=== PATIENT | female | born 1990 | race Caucasian/White ===

== ENCOUNTER 2024-09-09 09:58 | Outpatient (AMB) | payer MEDICAID, SELFPAY ==
[2024-09-09 10:08] VITALS: BP 140/82; PULSE 88; O2SAT 98; BMI 40.1
--- NOTE | 2024-09-09 10:08 | A.OFFVIS_ITS ---
Vital Signs 09/09/24 10:08 Height 5 ft Weight 205 lb 7.533 oz BMI 40.1 BP 140/82 H Blood Pressure Location Lt brachial Position Sitting Pulse 88 Pulse Source Pulse Oximeter Pulse Oximetry (%) 98 Oxygen Delivery Method Room Air Intake Visit Reasons: positive ISIDRO/CM Intake Note: Patient presents as a new patient, externally referred by PCP for positive ISIDRO. Accompanied by: Spouse Allergies escitalopram [From Lexapro] Adverse Reaction (Intermediate, Verified 09/09/24 10:10) body twitching Medication List - Last Reconciled 09/09/24 by Monica Frederick MD acetaminophen (Tylenol) 650 mg PO Q6H PRN albuterol sulfate 90 mcg/actuation 1 inh inhalation QID ibuprofen 600 mg PO TID HPI Comments Details: Patient is a 34-year-old female who presents for evaluation of positive ISIDRO. Patient states that in 01/29/2024 she had sudden onset of left-sided facial droop. 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 At that time she was given steroids with improvement in her symptoms. Subsequent to this she started to notice neuropathic type pain going down her left arm. Over the past 2 months she also started to notice stiffness in her hands that would last all day. Specifically in her 2nd MCP and 1st CMC. Denies rashes, photosensitivity, alopecia, oral/nasal ulcers, sicca symptoms, lymphadenopathy, chest pain/shortness of breath, foamy urine, lower extremity edema, muscle weakness, Raynaud's Also denies history of seizure, CVA, psychosis, history of kidney problems, history of cytopenias, history of VTE Family History - Daughter with RAFAL, aunt with lupus, grandmother with thyroid condition unsure if it is autoimmune related , miscarriages at 8 weeks, 18 weeks. Pre eclampsia with 3rd child [facility] Medical History (Updated 09/09/24 @ 10:40 by Monica Frederick MD) Antiphospholipid syndrome Encounter for prophylactic removal of fallopian tube PCOS (polycystic ovarian syndrome) Review of Systems Const Details: Review of Systems Constitutional: Denies fever, chills, weight loss ENT: Denies vision changes, eye pain or eye redness, dental caries, dry mouth GI: Denies nausea, vomiting, diarrhea, abdominal pain, change in BM Pulm: Denies SOB, GUAN, hemoptysis, wheezing Cards: Denies chest pain, palpitations Skin: Denies Raynaud's, rash, nail changes, photosensitivity, [employer]: Denies headaches, weakness, paresthesias, recurrent falls MSK: as per HPI All other systems reviewed and are unremarkable except noted above Physical Exam Vital Signs: Last Vital Signs Pulse 88 09/09/24 10:08 BP 140/82 H 09/09/24 10:08 Pulse Ox 98 09/09/24 10:08 Oxygen Delivery Method Room Air 09/09/24 10:08 BMI result Body Mass Index 40.1 Physical Examination Patient well appearing and in no apparent painful distress Able to rise from chair without support. ?Gait normal. Constitutional Mucous membranes pink and moist patient alert and cooperative HEENT Conjunctiva and sclera clear. ?Pupils equal round and reactive to light. ?No lymphadenopathy. ?Normal dentition. Respiratory System Normal respiratory effort and able to speak in complete sentences. ?Clear to auscultation bilaterally. ?No crackles, rales, rhonchi, wheezes heard. Cardiac System Regular rate and rhythm. ?S1 and S2 heard no murmurs. ?Radial pulses intact bilaterally MSK No deformity, swelling, abnormalities noted to bilateral hands. ?No evidence of synovitis. ?Able to move all joints with full range of motion, without limitation. Hands:.??Normal pain-free range of motion without tenderness, swelling, increased warmth or erythema. Able to make a full fist and has a good planogrammer strength. Wrists: Normal pain-free range of motion without tenderness, swelling, increased warmth or erythema. Elbows: Full range of motion without pain. No tenderness, weakness, swelling, increased warmth or erythema. Shoulders: Full range of motion without pain. No tenderness, weakness, swelling, increased warmth or erythema. Hips: Full range of motion without pain. Hip bursa:.??No tenderness. Knees:.???Normal pain-free range of motion without tenderness, swelling, increased warmth or erythema.?No effusion or crepitations Ankles:.??Normal pain-free range of motion without tenderness, swelling, increased warmth or erythema. Feet:.??Normal pain-free range of motion without tenderness, swelling, increased warmth or erythema. Tender points:??No tenderness to digital palpation at the occiput, trapezius, second rib, lateral epicondyle, knees, greater trochanter bilaterally, and left gluteal. Results Reviewed Results Reviewed: Results reviewed from referral. CCP/RF negative ESR/CRP normal ISIDRO 1:320 DFS pattern ISIDRO negative C3/4 normal Anticardiolipin and beta 2 glycoprotein antibodies negative Assessment & Plan Assessment & Plan (1) Antiphospholipid syndrome: Comment: Obstetric APS Code(s): D68.61 - Antiphospholipid syndrome Category: Medical Plan: #?Obstetrtic APS Given her history of recurrent 2nd trimester loss and history of preeclampsia this is concerning for obstetric antiphospholipid syndrome. However her APS labs including anticardiolipin and beta 2 glycoprotein antibodies were negative. It is possible that she could have another antiphospholipid antibody that is not being checked and may not meet classification criteria. No history or current evidence to suggest thrombotic antiphospholipid syndrome. Her joint pain does not sound to be truly inflammatory. But given this possible APLS diagnosis we will give her a trial of Plaquenil for the next 6 months. Discussed in detail with the patient and her who was present that we are going to try this medication for 6 months and see if it has any effect on her joint symptoms. If there is effect then the plan will be to continue this medication at a lower dose and monitor for any other manifestations. She currently has no further fertility desires she has gotten a bilateral tubal ligation. Plan I spent 35 minutes reviewing the record and labs, seeing the patient, discussing the treatment plan and documenting in the medical record ? For next visit: * Review efficacy of Plaquenil and check labs Orders: Orders Complement C3 6 Months - Antiphospholipid syndrome Complement C4 6 Months - Antiphospholipid syndrome Comprehensive Met. Panel 6 Months - Antiphospholipid syndrome C Reactive Protein 6 Months - Antiphospholipid syndrome Erythrocyte Sedimentation Rate 6 Months - Antiphospholipid syndrome UA w Microscopic 6 Months - Antiphospholipid syndrome Lupus Anticoagulant Panel 6 Months - Antiphospholipid syndrome XR hand wrist LT 6 Months - Antiphospholipid syndrome Complete Blood Count Auto Diff 6 Months - Antiphospholipid syndrome Protein Creatinine Ratio, Ur 6 Months - Antiphospholipid syndrome Beta-2 Glycoprotein Antibody 6 Months - Antiphospholipid syndrome Cardiolipin Antibodies 6 Months D68.61 - Antiphospholipid syndrome XR hand wrist RT 6 Months D68.61 - Antiphospholipid syndrome Medications: New hydroxychloroquine (Plaquenil) 400 mg (2 x 200 mg) PO DAILY 90 days 180 tabs 1RF D68.61 - Antiphospholipid syndrome Coding Level of Care Code New Pt Level 3 (39981) Diagnoses Antiphospholipid syndrome D68.61
== END 2024-09-09 10:50 | disposition home or self-care (01) ==
LOC: HO.RHE 09:59
PROVIDERS: PCP Nurse Practitioner Family; Visit Provider Student in an Organized Health Care Education/Training Program
DX: D68.61 Antiphospholipid syndrome (principal)
CPT/HCPCS: 99203

== ENCOUNTER → 2024-09-09 09:58 | Outpatient (BNVA) | payer MEDICAID, SELFPAY | PROVIDERS: PCP Nurse Practitioner Family; Visit Provider Student in an Organized Health Care Education/Training Program | DX: D68.61 Antiphospholipid syndrome (principal) | CPT/HCPCS: 99202 ==